=== PATIENT | female | born 1955 | race Caucasian/White ===

== ENCOUNTER → 2023-01-23 08:04 | Outpatient (BNVA) | payer MEDICARE, BC, SELFPAY | PROVIDERS: PCP Internal Medicine; Visit Provider Nurse Practitioner Family | DX: M25.511 Pain in right shoulder (principal) | CPT/HCPCS: 99202 ==

== ENCOUNTER 2024-02-07 16:19 | Emergency (ER) | payer MEDICARE, BC, SELFPAY ==
[2024-02-07 17:02] VITALS: BP 156/104; PULSE 95; RESP 18; TEMP 36.7; O2SAT 99; BMI 21.7
--- NOTE | 2024-02-07 17:06 | ED.EXTPRO ---
HPI - Extremity Problem General Chief complaint: Wound/Laceration Stated complaint: left finger laceration Time Seen by Provider: 02/07/24 17:28 Source: patient and family Mode of arrival: ambulatory Limitations: no limitations History of Present Illness HPI Narrative: 68-year-old female with a past medical history of spontaneous cardiac arrest presents to the emergency department, with her , for management of a laceration to her left index finger. 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 She denies any weakness, change in range of motion, or paresthesias. She reports she is having difficulty controlling bleeding. She denies any anticoagulation use and states that she takes aspirin daily. She states her last tetanus shot was in 2019. Pertinent positives and negatives discussed in HPI Related Data Home Medications Medication Instructions Recorded Confirmed acetaminophen 500 mg tablet 1,000 mg PO Q6H PRN 12/26/22 01/23/23 (Tylenol Extra Strength) amlodipine 5 mg tablet 5 mg PO DAILY 12/26/22 01/23/23 aspirin 81 mg tablet,delayed 81 mg PO DAILY 12/26/22 01/23/23 release (Adult Low Dose Aspirin) nitroglycerin 0.4 mg sublingual 0.4 mg sublingual Q5M PRN 12/26/22 01/23/23 tablet omeprazole 20 mg capsule,delayed 20 mg PO DAILY 01/23/23 01/23/23 release Allergies Allergy/AdvReac Type Severity Reaction Status Date / Time amoxicillin [From Augmentin] Allergy Intermediate Rash Verified 01/23/23 08:40 clavulanic acid Allergy Intermediate Rash Verified 01/23/23 08:40 [From Augmentin] lisinopril [LISINOPRIL] Allergy Intermediate DIZZINESS, Verified 01/23/23 08:40 SOB Review of Systems Review of Systems: Yes all other systems are reviewed and are negative PMFSH Past Medical History Medical History Diverticulitis Hx of migraines Hypertension Iron deficiency anemia Lung nodule Mitral valve regurgitation Old IL (myocardial infarction) Surgical History Coronary artery dissection H/O arthroscopic knee surgery Hx of appendectomy Hx of breast biopsy Hx of colonoscopy Hx of shoulder surgery Family History Family History Mother Parkinson disease Osteoporosis CVA (cerebral vascular accident) Father Depression Sister Multiple sclerosis Maternal Grandmother Breast cancer Social History Social History Household Members: Spouse Alcohol intake: current Alcohol intake frequency: a few times a month Alcohol type: other Patient Tobacco Use Status: Never used Tobacco Advance Directives: No Advance Directives Information Provided: No Physical Exam Vital Signs: Vital Signs: Last Vital Signs Temp 98 F 02/07/24 18:13 Pulse 78 02/07/24 18:13 Resp 18 02/07/24 18:13 BP 156/98 H 02/07/24 18:13 Pulse Ox 99 02/07/24 18:13 O2 Del Method Room Air 02/07/24 18:13 BMI result Body Mass Index 21.7 Nursing notes and vital signs reviewed. GENERAL APPEARANCE: A&0 x 4, generally well appearing, no acute distress HENMT: Normal to inspection, atraumatic, face symmetrical. Normal external ears, nose, and oropharynx clear. EYE: PERRLA, EOM intact, structures appear normal NECK: Supple without stiffness or restricted ROM. HEART: Normal rate and regular rhythm, normal S1/S2, no M/R/G LUNGS: LS CTA, moving air well. Able to speak in complete sentences. No crackles, wheezes, or rhonchi auscultated BACK: No CVAT, no obvious deformity EXTREMITIES: Moving all extremities without difficulty. Normal capillary refill. multiple 5 mm to 10 mm lacerations on distal aspect of left index finger NEUROLOGICAL: Alert and oriented, moving all 4 extremities with equal strength. CN not formally tested but appearing grossly intact. Observed to ambulate with normal gait. Cognition normal SKIN: Warm and dry without any lesions, rash, or visible sores Course Reevaluation(s) Reevaluation #1: Left index finger laceration, no tendon injury, no foreign body, no sign fracture Medications Administered Discontinued Medications Generic Name Dose Route Start Last Admin Trade Name Freq PRN Reason Stop Dose Admin Lidocaine HCl 10 ml 02/07/24 17:30 02/07/24 18:19 Lidocaine Hcl 1 % Mpf 5 Ml Vial INFILTRATI 02/07/24 17:31 10 ml ONCE ONE Administration Medical Decision Making Medical Decision Making MDM Narrative: Old records reviewed for previous imaging, lab studies, ECGs, and notes. Patient was assessed the emergency department with no acute distress or toxicity noted. patient with good range of motion of the left index finger and x-ray was considered, however; was deemed necessary based on physical exam. Laceration cleansed and closed. See procedure note for further details. Patient tolerated without incident. Wound dressed with nonadherent gauze and splint applied to prevent injury. Patient educated to return in 7-10 days for suture removal. Patient is safe for discharge at this time with plan for [id number] Tylenol and/or NSAID such as ibuprofen or naproxen for fever/discomfort with dosing as per packaging. HPI, PE, diagnostics, and plan discussed with patient and family with no unanswered questions at this time. Strict return precautions given to return to the emergency department with new, worsening, or concerning emergent symptoms. Recommended to follow-up with there primary care provider in 24-48 hours for further treatment and management. Differential Diagnosis Differential Diagnoses: The differential diagnosis associated with the presentation includes But not limited to contusion, abrasion, laceration, dislocation, fracture, sprain Independent Historian Clinical information obtained from an independent historian. History obtained from or confirmed by: Spouse External Record Review External record reviewed: Inpatient record and Outpatient record Tests considered The following testing was considered but not selected: x-ray Prescription Management I considered prescription management with: Antibiotic but no bacterial infection was identified Procedures Laceration Laceration 1: Site: hand ( index finger) Side (If applicable): left Size (cm): 1 Description: irregular Depth: simple, single layer Local Anesthetic: lidocaine 1% Amount of anesthesia used (mL): 5 Pre-repair: wound explored, irrigated extensively, deep structures intact and extensive debridement Skin layer closed with: vicryl Size (cm): 4-0 Number of sutures: 8 Discharge Plan Discharge Clinical Impression: Laceration Patient Disposition: Home, Self-Care Instructions: Care For Your Stitches (ED), Laceration (ED) Additional Instructions: Please return in 7-10 days for suture removal. Please do not soak her hand to prevent infection. A splint has been placed for safety to prevent rebleeding an injury to the finger Prescriptions: No Action nitroglycerin 0.4 mg tablet, sublingual 0.4 mg sublingual Q5M PRN Rx Instructions: do not exceed 3 doses per episode acetaminophen [Tylenol Extra Strength] 500 mg tablet 1,000 mg PO Q6H PRN amlodipine 5 mg tablet 5 mg PO DAILY aspirin [Adult Low Dose Aspirin] 81 mg tablet,delayed release (DR/EC) 81 mg PO DAILY omeprazole 20 mg capsule,delayed release(DR/EC) 20 mg PO DAILY Referrals: Zora Edwards MD [Primary Care Provider] - Print Language: Luxembourger
[2024-02-07 18:13] VITALS: BP 156/98; PULSE 78; RESP 18; TEMP 36.6; O2SAT 99
[2024-02-07] MEDS: Lidocaine HCl 1 % MPF 5 ML VIAL 10 ML INFILTRATI (18:19)
[2024-02-07 18:54] VITALS: BP 143/92; PULSE 64; RESP 18; TEMP 36.7; O2SAT 98
== END 2024-02-07 18:55 | disposition home or self-care (01) ==
PROVIDERS: Emergency Provider Emergency Medicine Emergency Medical Services; PCP Internal Medicine
DX: S61.211A Laceration without foreign body of left index finger without damage to nail, initial encounter (principal); I10 Essential (primary) hypertension; W29.0XXA Contact with powered kitchen appliance, initial encounter; Y93.9 Activity, unspecified; Y92.9 Unspecified place or not applicable; Y99.9 Unspecified external cause status
CPT/HCPCS: 12001; 99282; 99284

== ENCOUNTER 2025-07-06 12:09 | Outpatient (REF) | payer MEDICARE, BC, SELFPAY ==
--- OUTSIDE RECORDS SUMMARY | 2025-07-06 12:55 | XMS_ITS | Encounter Summary ---
Author Organization [facility] Address Formerly [facility] [address] [place] [phone] Phone Care Team Providers Care Shoe Treer Name Role Phone Zora Edwards MD Primary Care Provider [phone] Encounter Details Date Type Department Care Team (Late st Contact Info) Description 07/18/2023 Procedure Pass [facility] [place] [facility] Cardiology [address] [facility], [place] [address] Social History Tobacco Use Types Packs/Day Years Used Date Smoking Tobacco: Never Smokeless Tobacco: Never Education Answer Date Recorded Are you interested in more education? Not on marita e 03/07/2023 Are you concerned about learning? Not on file 03/07/2023 No 03/07/2023 No 03/07/2023 Digital Access Answer Date Recorded No 04/02/2023 No 04/02/2023 Reliable internet access at home? Not on file 04/02/2023 Device with a working camera? Not on file Comments Unknown Sex and Gender Information Value Date Recorded Sex Assigned at Not on file Legal Sex Female 9:24 AM EDT Gender Identity Not on file Sexual Orientation Not on file documented as of this encounter Plan of Treatment Upcoming Encounters Date Type Department Care Team (Late st Contact Info) Description 09/26/2025 10:00 AM EST Office Visit [facility] Cardiology [facility] [address] [facility], [address] [place] [phone] Heather Carr, RELATIONS SPECIALIST [address] [place] [address] [email or web address] 04/11/2026 11:00 AM EDT Office Visit [facility] Cardiology [facility] [address] [facility], [address] [place] [address] Rebekah Means MD [address] [place] [phone] [email or web address] documented as of this encounter Visit Diagnoses Not on filedocumented in this encounter Care Teams Shoe Treer Relationship Specialty Start Date End Date Zora Edwards MD [address] [place] [phone] PCP - General Internal Medicine 05/18/14 documented as of this encounter Additional Source Comments The information contained in this document represents components of the legal health record. It is not the complete legal health record.[facility]
--- OUTSIDE RECORDS SUMMARY | 2025-07-06 12:55 | XMS_ITS | Clinical Summary ---
Author Organization [facility] Address [address] [address] Phone Care Team Providers Care Etcher Hand Name Role Phone Zora Edwards MD Primary Care Provider [phone] Allergies Active Allergy Reactions Criticality Noted Date Comments Lisinopril Cough 08/14/2015 Medications aspirin 81 MG EC tablet Take 81 mg by mouth daily. Active amLODIPine (NORVASC) 10 MG tablet TAKE 1 TABLET BY MOUTH EVERY DAY 90 tablet 3 12/28/2024 Active nitroglycerin (NITROSTAT) 0.4 MG SL tabletIndicatio ns:Atherosclero sis of [place] coronary artery of [place] heart with angina pectoris Place 1 tablet (0.4 mg total) under the tongue every 5 (five) minutes as needed for chest pain. 25 tablet 6 03/28/2025 Active metoprolol succinate (TOPROL-XL) 25 MG 24 hr tablet Take 0.5 tablets (12.5 mg total) by mouth daily. 45 tablet 3 03/28/2025 Active Active Problems Problem Noted Date Diagnosed Date Counseling on health promotion and disease preve ntion 01/28/2022 Benign essential hypertension 10/27/2017 Assessment & Plan (08/06/2022 6:58 AM EDT): She had hypertension before the cardiac events when she was in her 40s [premenopausal]. Reports she does not feel herself on Metoprolol Tartrate. Denies any swelling of legs on Amlodipine and is tolerating the medication well. Mentions her home blood pressure reading runs around 130/60 mmHg. She does have a blood pressure measuring cuff at home. On Amlodipine 5 mg tablets daily and Metoprolol 25 mg daily. Blood pressure checked today in the office is 140/90 mmHg. Recommended to discontinue the Metoprolol, reasons explained. Advised to increase the doses of Amlodipine from 5 mg daily to 7.5 mg daily, take Amlodipine 5 mg 1.5 tablets once daily. Coronary artery disease 10/16/2016 Assessment & Plan (08/06/2022 7:20 AM EDT): Mentions she does weight exercises and had an injury on her shoulder for which she is planning to visit a mortar mixer. She feels that she has or had some autoimmune issues because she had previous symptoms like Diverticulitis, dry eyes, and painful knees. On previous screenings [February 2015], she was negative for Lyme disease, normal uric acid, rheumatoid was negative, TAWANDA was negative, ESR was 2. On Aspirin 81 mg daily permanently. Informed that considering the results or previous lab reports, any inflammatory condition is very unlikely. Continue Aspirin 81 mg daily life long. Atypical chest pain 03/11/2016 Assessment & Plan (08/06/2022 7:10 AM EDT): No recurrence. If she experiences recurrence of symptoms or any new symptoms, contact me via patient gateway or my office. Gastroesophageal reflux disease without esophagi tis 03/11/2016 Assessment & Plan (08/06/2022 7:09 AM EDT): Improvement reported. History reviewed. Coronary artery dissection 04/10/2014 Overview (12/10/2018): SCAD mild LAD April 2014 c/b VFA Assessment & Plan (08/06/2022 7:23 AM EDT): Previously followed by Dr. Noonan. She had SCAD in April 2014 while running with small apical infarct which was identified in the setting of a cardiac arrest. She was presented with acute non ST segment elevation MO. After that, she underwent follow-up cardiac cath. In April 2015 that revealed improvements in the LAD. Previously noted SCAD by report, mid ostial narrowing with possible cath. Induced spasm. That cath was performed on 05/03/2015. Then she subsequently was followed by Dr. Noonna in the CPP program. Then she has a recurrence in April 2015 which was thought to be vasospasm. CTA head and neck without evidence of FMD and normal CTA chest. Dr. Noonan stopped her beta alicia. She has unpredictable palpitations. Mentions 2 weeks before the cardiac event she had nightmares. Says she was not running harder than usual when she had the SCAD. Since the episode of 2014 she had no recurrence yet. While going to the ER she had a troponin checkup and other screenings also, her potassium levels were low. Also, mentions she had a previous PFO. Denies depression or anxiety. Denies h/o aortic or cerebral aneurysms, MO or stroke in her parents or siblings at young age. Inquires in case of acute symptoms what medications she can take. 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 Cardiac Cath 05/03/15 : Left dominant system. Severely torturous coronaries. Non-dominant right, cath. Induced spasm. Her LAD appears normal. Cardiac Cath 05-03-14 : Type-2 mid LAD dissection with ELIDA 01 flow, Left to left collaterals. Her EF revealed 45% with zach-apical, zach-lateral, and infra apical akinesis. On Plavix 75 mg daily. Informed about risk factors regarding the Plavix intake. Considered discontinuation of Plavix. I will contact Dr. Andre and will discuss the need for Plavix. I will refer her to Dr. Grossman and update about Plavix after I hear back from Dr. Andre. Informed about the new I-SCAD registry. Informed that the combination of Aspirin, Plavix and NSAIDS can raise the bleeding risk. Educated about the pathophysiology, Inheritance characters of SCAD, and possibility of recurrence. Contact us on patient gateway in case of any questions or concerns. No need for genetic testing at present. Reasoning explained. Referred to Dr. Miller. Follow up in a year. Hypertension Resolved Problems Problem Noted Date Diagnosed Date Resolved Date Atherosclerosis of [place] co ronary artery of [place] heart without angina pectoris 04/21/2017 Immunizations Immunization Administration Dates Next Due Pneumococcal, Unspecified Formulation (Deferred: Patient Decision - 00) Social History Tobacco Use Types Packs/Day Years Used Date Smoking Tobacco: Never Smokeless Tobacco: Never Tobacco Cessation:Counseling Given: Not Answered Education Answer Date Recorded Are you interested [...] on file Sexual Orientation Not on file Last Filed Vital Signs Vital Sign Reading Time Taken Comments Blood Pressure 118/80 03/28/2025 4:03 PM EDT Pulse 85 03/28/2025 1:14 PM EDT Temperature - - Respiratory Rate 12 01/28/2022 10:28 AM EDT Oxygen Saturation 97% 03/16/2025 9:00 AM EDT Inhaled Oxygen Concentration - - Weight 61.7 kg (136 lb) 03/28/2025 1:14 PM EDT Height 163.2 cm (5' 4.25 ) 03/16/2025 9:00 AM ED T Body Mass Index 23.16 03/16/2025 9:00 AM EDT Plan of Treatment Upcoming Encounters Date Type Department Care Team (Late st Contact Info) Description 09/26/2025 10:00 AM EST Office Visit [facility] Cardiology [facility] [address] [facility], [address] [place] [address] Heather Carr CNP [address] [place] [address] [email or web address] 04/11/2026 11:00 AM EDT Office Visit [facility] Cardiology [facility] [address], [address] [place] [address] Rebekah Means MD [address] [place] [phone] [email or web address] Health Maintenance Due Date Last Done Comments DEPRESSION SCREENING 1968 HEPATITIS C SCREENING 1974 COLOGUARD 2001 COLONOSCOPY 2001 COLORECTAL CANCER SCREENING 2001 FIT TEST 2001 FOBT 2001 SIGMOIDOSCOPY 2001 VIRTUAL COLONOSCOPY 2001 ZOSTER VACCINES (1 of 2) 2006 OSTEOPOROSIS SCREENING INITIAL (ONE-TIME) 2021 COVID-19 VACCINE ( season) 2024 09/16/2021, 12/28/2020, 12/07/2020 BLOOD PRESSURE 09/28/2025 03/28/2025 LIPID PANEL 03/08/2026 03/08/2025, 02/18/2024 MAMMOGRAM 01/25/2027 01/25/2025, 01/25/2025 Adult Td,Tdap Booster 02/13/2030 02/14/2020 , 08/17/2014, 11/05/2010, Additional history exists RSV VACCINE (1 - 1-dose 75+ series) 2031 PNEUMOCOCCAL VACCINES (50+ years) Completed 08/13/2023, 07/29/2022 SMOKING STATUS SCREENING (Once After 26 Yrs) Completed 03/28/2025 HEPATITIS A VACCINES Aged Out No long er eligible based on patient's age to complete this topic HIB VACCINES Aged Out No longer eligi ble based on patient's age to complete this topic MENINGOCOCCAL VACCINES (ACWY) Aged Out No longer eligible based on patient's age to complete this topic MENINGOCOCCAL VACCINES (B) Aged Out N o longer eligible based on patient's age to complete this topic Medical Devices Not on file Insurance [facility] FEDERAL MEDICARE PART A & B MEDICARE PART A & B MEDICARE PART A & B [facility] MEDICARE PART A & B MEDICARE PART A & [place] [address] [address] [address] MEDICARE PART A & [place] [address] [address] MEDICARE PART A & [place] [address] [address] MEDICARE PART A & B [facility] FEDERAL MEDICARE PART A & B Care Teams Etcher Hand Relationship Specialty Start Date End Date Zora Edwards MD [address] [place] [address] PCP - General Internal Medicine 05/18/14 Additional Source Comments The information contained in this document represents components of the legal health record. It is not the complete legal health record.[facility]
--- OUTSIDE RECORDS SUMMARY | 2025-07-06 12:55 | XMS_ITS ---
Author Name [facility] Organization Unknown Care Team Organization Name Specialty Phone Email Start Date End Da te [facility] AC 06/29/2025 [facility] KATHRYN MANDUJANO Primary Care 10/22/2023 4 [facility] Zora Edwards Primary Care 04/18/2023 4
[2025-07-06 14:50] LABS: Alanine Aminotransferase 24 U/L (0-31); Albumin Level 4.8 g/dL (3.5-5.0); Alkaline Phosphatase 87 U/L (39-117); Anion Gap 14 (12-20); Aspartate Amino Transferase 34 U/L (5-31); Blood Urea Nitrogen 14 mg/dL (9-16); Calcium 10.1 mg/dL (8.4-10.2); Carbon Dioxide 27 mmol/L (22-29); Chloride 104 mmol/L (96-108); Cholesterol 215 mg/dL (<200); Estimated Glomerular Filt Rate > 60; HDL Cholesterol 98 mg/dL (>40); Potassium 4.9 mmol/L (3.3-5.1); Sodium 140 mmol/L (135-145); Total Protein 7.5 g/dL (6.5-8.0); Triglycerides 61 mg/dL (<150)
== END 2025-07-06 12:10 | disposition home or self-care (01) ==
LOC: HO.LAB 12:09
PROVIDERS: PCP Internal Medicine; Visit Provider Registered Nurse
DX: E78.00 Pure hypercholesterolemia, unspecified (principal)
CPT/HCPCS: 36415; 80053; 80061